=== PATIENT | female | born 1975 | race Caucasian/White ===

== ENCOUNTER → 2024-06-16 | Outpatient (CLI) | payer BC ==
--- NOTE | 2024-07-16 11:55 | XR ---
Site ID synapse default Patient Christy Steele ID [id number] Age/Gender: 48Y, F Order # N/A Procedure Fingers-RLAT Date 06/16/2024 9:09:00 AM EXAMINATION TYPE: XR finger RT DATE OF EXAM: 06/25/2024 7:13 PM INDICATION: Patient age: Female; 48 year old; Reason for study: Pain COMPARISON: None TECHNIQUE: Frontal and lateral views of the first digit of the right hand were obtained. FINDINGS: Normal alignment of the visualized joints. No acute osseous pathology is identified. No o sseous erosions. No evidence of soft tissue swelling. No radiopaque foreign body. IMPRESSION: No acute osseous pathology.
== END | disposition home or self-care (01) ==
LOC: RADXRYALE 09:04
PROVIDERS: ATTEND Physician Assistant
DX: M79.641 Pain in right hand (principal)